=== PATIENT | female | born 1970 | race Caucasian/White ===

== ENCOUNTER → 2017-11-09 | Outpatient (CLI) | payer SELFPAY | END | disposition home or self-care (01) | LOC: CFH 08:40 | PROVIDERS: ATTEND Obstetrics & Gynecology | DX: R92.2 Inconclusive mammogram (principal) | CPT/HCPCS: 76642 ==

== ENCOUNTER → 2017-11-30 | Outpatient (CLI) | payer OTHER ==
[~2017-11-30] MED LIST: GADOBUTROL 10 MMOL/10 ML VIAL ONE
== END | disposition home or self-care (01) ==
LOC: RAD 15:18
PROVIDERS: ATTEND Otolaryngology
DX: G50.8 Other disorders of trigeminal nerve (principal)
CPT/HCPCS: 70553; A9585

== ENCOUNTER → 2018-07-18 | Outpatient (CLI) | payer OTHER ==
[2018-07-18 07:37] LABS: CHLORIDE 105 mmol/L (98-107)
[2018-07-18 07:43] LABS: ALANINE AMINOTRANSFERASE 32 U/L (12-78); ALBUMIN 3.8 g/dL (3.4-5.0); ALKALINE PHOSPHATASE 61 U/L (45-117); ANION GAP 5 mmol/L (5-15); BILIRUBIN,TOTAL 0.6 mg/dL (0.2-1.0); CALCIUM 8.9 mg/dL (8.5-10.1); CREATININE 0.73 mg/dL (0.55-1.02); TOTAL PROTEIN 7.6 g/dL (6.4-8.2)
== END | disposition home or self-care (01) ==
LOC: LAB 07:11
PROVIDERS: ATTEND Nurse Practitioner
DX: R73.01 Impaired fasting glucose (principal)
CPT/HCPCS: 36415; 80053

== ENCOUNTER 2018-11-29 07:05 | Outpatient (CLI) | payer OTHER | END 2018-11-29 23:59 | disposition home or self-care (01) | LOC: LAB 07:05 | PROVIDERS: ATTEND Nurse Practitioner | DX: R73.01 Impaired fasting glucose (principal) | CPT/HCPCS: 36415; 80053; 80061; 83036 ==

== ENCOUNTER 2019-05-02 09:35 | Outpatient (CLI) | payer OTHER ==
[2019-05-02] MEDS ORDERED: LIDOCAINE 1%-EPI 1:100K, 20ML ONE (13:18)
[2019-05-02] MEDS ORDERED: SODIUM BICARBONATE 4.2%, 5ML ONE (13:18)
[2019-05-02] MEDS ORDERED: LIDOCAINE 1%, 20ML ONE (13:18)
== END 2019-05-02 23:59 | disposition home or self-care (01) ==
LOC: CFH 09:35
PROVIDERS: ATTEND Obstetrics & Gynecology
DX: R92.0 Mammographic microcalcification found on diagnostic imaging of breast (principal)
CPT/HCPCS: 19081; 77065; 88305; J3490

== ENCOUNTER → 2020-04-07 | Outpatient (CLI) | payer OTHER | END | disposition home or self-care (01) | LOC: CFH 10:38 | PROVIDERS: ATTEND Obstetrics & Gynecology | DX: Z12.31 Encounter for screening mammogram for malignant neoplasm of breast (principal) | CPT/HCPCS: 77063; 77067 ==

== ENCOUNTER 2020-04-15 07:40 | Outpatient (CLI) | payer OTHER | END 2020-04-15 23:59 | disposition home or self-care (01) | LOC: ROC 07:40 | PROVIDERS: ATTEND Radiology Radiation Oncology | DX: G50.0 Trigeminal neuralgia (principal); N64.9 Disorder of breast, unspecified | CPT/HCPCS: 99214; G0463 ==

== ENCOUNTER → 2020-04-15 | Outpatient (CLI) | payer OTHER | END | disposition home or self-care (01) | LOC: CFH 14:23 | PROVIDERS: ATTEND Obstetrics & Gynecology | DX: N60.01 Solitary cyst of right breast (principal); N63.11 Unspecified lump in the right breast, upper outer quadrant; N64.89 Other specified disorders of breast | CPT/HCPCS: 76642; 77065 ==

== ENCOUNTER → 2020-09-23 | Outpatient (CLI) | payer OTHER | END | disposition home or self-care (01) | LOC: ROC 13:06 | PROVIDERS: ATTEND Radiology Radiation Oncology | DX: Z08 Encounter for follow-up examination after completed treatment for malignant neoplasm (principal); G50.0 Trigeminal neuralgia | CPT/HCPCS: 99212; G0463 ==